=== PATIENT | male | born 1970 | race African-American/Black ===

== ENCOUNTER 2016-09-19 23:57 | Inpatient (IN) | payer OTHER ==
[~2016-09-19] VITALS: Ht 170.2 cm; Wt 85.7 kg
[~2016-09-19 23:57] MED LIST: ASPI81CT89 PO; ATOR20TA40 PO; CARV3.122 PO; FURO-572 PO; LOSA25TA14 PO; SACC250C4 PO; SPIR25TA PO
[2016-09-20 00:07] VITALS: BP 118/83
--- NOTE | 2016-09-20 02:19 | NUR ---
Patient to bed 08.
--- NOTE | 2016-09-20 02:20 | NUR ---
46/M BIBA W/C/O N/V SINCE YESTERDAY. PATIENT STATES HE WAS DRINKING THE DAY BEFORE YESTERDAY AND HASN'T DRANK. VSS. ER AWARE
--- NOTE | 2016-09-20 02:29 | NUR ---
Dr. Greenfield evaluating patient at bedside.
[2016-09-20] MEDS ORDERED: ACETAMIN/CODEINE 120/12MG-5ML 5 ML UDC PO ONE (02:40)
--- NOTE | 2016-09-20 02:52 | NUR ---
XRAY at bedside.
[2016-09-20 03:40] LABS: BASOPHILS # (AUTO) 0.1 K/uL (0.00-0.22); BASOPHILS % (AUTO) 1.5 % (0.0-2.0); EOSINOPHILS # (AUTO) 0.2 K/uL (0-0.4); EOSINOPHILS % (AUTO) 5.7 % (0.0-4.0); HEMATOCRIT 39.8 % (36-52); HEMOGLOBIN 12.4 g/dL (12.0-18.0); LYMPHOCYTES # (AUTO) 1.2 K/uL (2.0-11.5); MEAN CORPUSCULAR HEMOGLOBIN 26 pg (27-31); MEAN CORPUSCULAR HGB CONC 31 g/dL (33-37); MEAN CORPUSCULAR VOLUME 82 fL (80-94); MONOCYTES # (AUTO) 0.5 K/uL (0.8-1.0); MONOCYTES % (AUTO) 13.5 % (1.7-9.3); NEUTROPHILS % (AUTO) 49.3 % (42.2-75.2); PLATELET COUNT (AUTO) 302 K/uL (140-450); RED BLOOD CELL COUNT(AUTO) 4.83 MIL/uL (4.20-6.10); RED CELL DISTRIBUTION WIDTH 16.7 % (11.6-13.7)
[2016-09-20 03:56] LABS: ANION GAP 13.6 (8-16); CARBON DIOXIDE 24.8 mmol/L (21-32); CREATININE 0.9 mg/dL (0.6-1.3); POTASSIUM 3.4 mmol/L (3.5-5.1)
[2016-09-20 03:58] LABS: INR 1.3 (0.8-1.2)
[2016-09-20 04:00] LABS: ALBUMIN 2.7 g/dL (3.4-5.0); TOTAL BILIRUBIN 0.6 mg/dL (0.0-1.0); TOTAL PROTEIN, SERUM 7.2 g/dL (6.4-8.2)
[2016-09-20] MEDS ORDERED: FUROSEMIDE 40 MG/4 ML VIAL IVP ONE (04:10)
[2016-09-20 04:22] LABS: LACTIC ACID 1.8 mmol/L (0.4-2.0)
--- NOTE | 2016-09-20 04:31 | NUR ---
PT RESTING, ON DATABASE DEVELOPMENT PROJECT MANAGER AWATING FOR ROOM ASSIGMENT. NO S/S OF DISTRESS NOTED WILL CONT TO MONITOR.
[2016-09-20] MEDS ORDERED: HYDROcodone/APAP 5/325 MG 1 TAB TAB PO PRN (05:05)
[2016-09-20] MEDS ORDERED: ACETAMINOPHEN 325 MG TAB PO PRN (05:05)
[2016-09-20] MEDS ORDERED: ONDANSETRON 4 MG/2 ML VIAL IVP PRN (05:05)
--- NOTE | 2016-09-20 05:20 | NUR ---
Patient will be admitted to care of DR ORELLANA. Admited to TELEMETRY. Will go to room 106 B. Belongings list completed. Report to TOMMY HENRIQUEZ.
--- NOTE | 2016-09-20 05:35 | NUR ---
PT TRAFERRED TO TELEMETRY FLOOR, ROOM 106 B. NO S/S OF DISTRESS NOTED DURING TRASPORT. VSS. ACCOMPANIED BY JOSUE SANDERS, AND JANETH BEARD.
--- NOTE | 2016-09-20 05:35 | NUR ---
PT ADMIT DX CHF EXACERBATION,PT LOOKS WEAK AND DROWSY,ASSISTED TO BED SKIN CHECK DONE WITH RN TRACEY AND PATIENT BILATERAL LOWER EXTREMITIES HAVE EDEMA 2+ AT THIS TIME.PT WAS PLACED ON TELEMONITORING SO WE CAN CHECK HIS HEART.PT DENIES ANY PAIN OR DISCOMFORT OR ANY SOB AT THIS TIME,VITALS TAKEN AND PATIENT REMAINS AFEBRILE AND O2SAT IS 98% ON ROOM AIR.PT HAS BEEN PLACE ON FALL PRECAUTIONS AND EDUCATED ON HOW TO USE THE CALL LIGHT PT VERBALIZES UNDERSTANDING.PT IS CURRENTLY VOIDING PALE COLOR URINE IN THE URINAL.PLAN OF CARE DISCUSSED WITH THE PATIENT WILL CONTINUE TO MONITOR.BED ALARM ON.
[2016-09-20 05:37] LABS: FREE T4 (FREE THYROXINE) 1.64 ng/dL (0.76-1.46); THYROID STIMULATING HORMONE 2.13 uIU/mL (0.34-3.76)
[2016-09-20 05:51] VITALS: BP 109/58
--- NOTE | 2016-09-20 06:10 | NUR ---
Patient's Plan of Care was discussed and reviewed with POTATO SEED CUTTER: MARTINEZ Liu
[2016-09-20 06:33] LABS: AMPHETAMINE, URINE NEG. ng/ml (NEG <=1000); BARBITURATE, URINE NEG. ng/ml (NEG <=200); BENZODIAZEPINE, URINE NEG. ng/mL (NEG <=200); CANNABINOID, URINE NEG. ng/mL (NEG <=50); COCAINE, URINE NEG. ng/mL (NEG <=300); OPIATE, URINE NEG. ng/mL (NEG <=2000); PHENCYCLIDINE SCREEN,URINE NEG. ng/mL (NEG <=25)
--- NOTE | 2016-09-20 06:35 | NUR ---
MRSA OF THE NARES WAS COLLECTED ALREADY AND SENT TO THE LAB. URINE FOR UDS HAS ALSO BEEN COLLECTED AND SENT TO THE LAB.PT CONTINUES TO SLEEP ON AND OFF CONTINUES TO BE DROWSY BUT WAKES UP TO USE THE URINAL.CALL LIGHT WITHIN REACH.
--- NOTE | 2016-09-20 06:36 | NUR ---
PATIENT IS COUGHING INTERMITTENTLY AND CONTINUES TO COUGH BUT NO SECRETIONS OR PHLEGM EXPECTORATED AT THIS TIME.PATIENT DENIES ANY SOB.
--- NOTE | 2016-09-20 06:38 | NUR ---
PATIENT NOT PLACED ON SCD'S BECAUSE OF THE SWELLING TO HIS LOWER EXTREMITIES.
--- NOTE | 2016-09-20 06:58 | NUR ---
PATIENT HAS BEEN SCREENED AND CATEGORIZED HIGH NUTRITION RISK. PATIENT WILL BE SEEN WITHIN 1-2 DAYS OF ADMISSION. 09/21/16-09/22/16 RINA [place] MS, RDN
--- NOTE | 2016-09-20 07:33 | NUR ---
PT STABLE REPORT ENDORSED TO TOMMY WOLFE SHE WILL RESUME CARE OF THE PATIENT.
--- NOTE | 2016-09-20 07:35 | NUR ---
RECEIVED REPORT FROM NIGHT RN. PT RESTING IN BED. AAOX4. NO S/S OF ACUTE DISTRESS. PT HAS NON-PRODUCTIVE COUGH. IV SITE PATENT AND INTACT. 4+ PITTING EDEMA NOTED TO BLE. PT DENIES PAIN. CALL LIGHT WITHIN REACH. SAFETY MEASURES ENSURED. WILL CONTINUE TO MONITOR.
[2016-09-20 07:52] VITALS: BP 115/86
[2016-09-20] MEDS: LOSARTAN 25 MG TAB PO SCH (09:00)
[2016-09-20] MEDS: FUROSEMIDE 40 MG/4 ML VIAL IVP SCH ×2 (09:56→21:56)
--- NOTE | 2016-09-20 09:56 | NUR ---
PT RESTING IN BED. NO S/S OF ACUTE DISTRESS. PT DENIES PAIN. IV SITE PATENT AND INTACT. CALL LIGHT WITHIN REACH. SAFETY MEASURES ENSURED. WILL CONTINUE TO MONITOR.
[2016-09-20] MEDS: ATORVASTATIN 20 MG TAB PO SCH (09:57)
[2016-09-20] MEDS: DOCUSATE SODIUM 100 MG GELCAP PO SCH (09:57)
[2016-09-20] MEDS: CARVEDILOL 3.125 MG TAB PO SCH ×2 (09:58→23:43)
[2016-09-20] MEDS: ASPIRIN 81 MG TAB.CHEW PO SCH (09:59)
[2016-09-20] MEDS: SPIRONOLACTONE 25 MG TAB PO SCH (10:00)
[2016-09-20] MEDS ORDERED: POTASSIUM CHLORIDE 10 MEQ TABER PO SCH (11:00)
[2016-09-20 12:00] VITALS: BP 108/93
--- NOTE | 2016-09-20 12:24 | NUR ---
PT SLEEPING IN BED. NO S/S OF ACUTE DISTRESS. CALL LIGHT WITHIN REACH. SAFETY MEASURES ENSURED. WILL CONTINUE TO MONITOR.
[2016-09-20] MEDS ORDERED: AZITHROMYCIN 250 MG TAB PO SCH (13:00)
--- NOTE | 2016-09-20 13:07 | NUR ---
ECHO DONE AND PT NURSE NOTIFIED ABOUT LOW EF
[2016-09-20 16:00] VITALS: BP 97/66
--- NOTE | 2016-09-20 16:05 | NUR ---
PHYSICIAN AND QUANTITATIVE MANAGER AT BEDSIDE TO DO THORACENTISIS. PT STATES HE "DIDN'T AUTHORIZE WOMEN TO BE IN HIS ROOM." PT REFUSES THORA. PHYSICIAN EXPLAINED IMPORTANCE OF PROCEDURE AND OFFERED TO HAVE THOSE THAT COULD STEP OUT OF THE ROOM. PT VERBALIZES UNDERSTANDING BUT REFUSES. DR. WILLS MADE AWARE.
[2016-09-20] MEDS: ALBUTEROL SULFATE/IPRATROPIU 3 ML SOL IH SCH (18:56)
--- NOTE | 2016-09-20 19:04 | NUR ---
STARTED HHN TREATMENT, PUT MEDICATION IN NEBULIZER AND AFTER 1 MINUTE PATIENT TOOK MASK/NEBULIZER OFF AND STATED HE DOES NOT WANT HHN
--- NOTE | 2016-09-20 19:14 | NUR ---
ENDORSED PLAN OF CARE TO NIGHT RN. PT REMAINS IN STABLE CONDITION.
--- NOTE | 2016-09-20 19:20 | NUR ---
RECEIVED REPORT FROM DAY NURSEAIDEN. PATIENT RESTING IN BED, WATCHING TELEVISION. NO RESPIRATORY DISTRESS, SOB, OR DISCOMFORT. INITIAL ASSESSMENT AND BODY CHECK DONE. PATIENT IS AOX4, SKIN IS INTACT, IV ACCESS TO RIGHT FOREARM 22G, PATENT. PATIENT HAS SWELLING TO BLE, REFUSES TO PALPATION TO AREA. DISCUSSED PLAN OF CARE, MEDICATION REGIMENT, AND PAIN MANAGEMENT WITH PATIENT. PATIENT VERBALIZED UNDERSTANDING. PLACED PATIENT ON SAFETY/FALL PRECAUTIONS. CALL LIGHT LEFT WITHIN REACH, WILL CONTINUE TO MONITOR.
[2016-09-20 20:00] VITALS: BP 96/60
--- NOTE | 2016-09-20 20:00 | NUR ---
DR. GONZALES IN TO SEE PATIENT.
--- NOTE | 2016-09-20 22:20 | NUR ---
PATIENT IN BED, RESTING, WATCHING TELEVISION. NO RESPIRATORY DISTRESS, SOB, OR DISCOMFORT. CALL LIGHT LEFT WITHIN REACH, WILL CONTINUE TO MONITOR.
[2016-09-21] VITALS (7 sets, daily range): BP systolic 91–125; BP diastolic 56–78
--- NOTE | 2016-09-21 01:10 | NUR ---
PATIENT IN BED, SLEEPING. NO RESPIRATORY DISTRESS, SOB, OR DISCOMFORT. CALL LIGHT LEFT WITHIN REACH, WILL CONTINUE TO MONITOR.
--- NOTE | 2016-09-21 03:03 | NUR ---
PATIENT ASLEEP. NO RESPIRATORY DISTRESS, SOB, OR DISCOMFORT. CALL LIGHT LEFT WITHIN REACH, WILL CONTINUE TO MONITOR.
[2016-09-21] MEDS: ALBUTEROL SULFATE/IPRATROPIU 3 ML SOL IH SCH ×3 (06:00→19:56)
--- NOTE | 2016-09-21 06:02 | NUR ---
PATIENT SITTING UP IN BED, WATCHING TELEVISION. NO RESPIRATORY DISTRESS, SOB, OR DISCOMFORT. CALL LIGHT LEFT WITHIN REACH, WILL CONTINUE TO MONITOR.
--- NOTE | 2016-09-21 07:05 | NUR ---
ASSUMED CONTINUITY OF CARE. NO SIGNS AND SYMPTOMS OF ACUTE DISTRESS NOTICED. INITIAL ASSESSMENT DONE. NON-COMPLIANT. REFUSED COMPLETE ASSESSMENT OF BLE. EXPLAINED DIAGNOSIS, PLAN OF CARE, PAIN MANAGEMENT TEACHING, USE OF CALL LIGHT/BED/TV/BATHROOM. VERBALIZED UNDERSTANDING. CALL LIGHT WITHIN REACH.
--- NOTE | 2016-09-21 07:05 | NUR ---
REPORT GIVEN TO DAY NURSEDONNA. PATIENT RESTING IN BED, STABLE. NO RESPIRATORY DISTRESS, SOB, OR DISCOMFORT. ALL NEEDS ATTENDED TO DURING SHIFT, CALL LIGHT LEFT WITHIN REACH.
[2016-09-21 07:09] LABS: APPEARANCE,URINE CLEAR (CLEAR); BILIRUBIN,URINE NEGATIVE (NEGATIVE); BLOOD, URINE NEGATIVE (NEGATIVE); COLOR,URINE YELLOW (YELLOW); LEUKOCYTE ESTERASE ,URINE NEGATIVE (NEGATIVE); NITRITE, URINE NEGATIVE (NEGATIVE); PROTEIN,URINE NEGATIVE (NEGATIVE); UGLUCOSE NEGATIVE (NEGATIVE); UROBILINOGEN,URINE 0.2 EU/dL (0.2 - 1)
--- NOTE | 2016-09-21 07:10 | NUR ---
TOMMY THOMPSON NOTIFIED THAT PT REFUSED BREATHING TX
--- NOTE | 2016-09-21 08:00 | NUR ---
Patient's Plan of Care was discussed and reviewed with SUSTAINABLE AGRICULTURE SPECIALIST: FENG.
[2016-09-21] MEDS: LOSARTAN 25 MG TAB PO SCH (08:35)
[2016-09-21] MEDS: LACTOBACILLUS RHAMNOSUS GG 1 EACH CAP PO SCH (08:35)
[2016-09-21] MEDS: CARVEDILOL 3.125 MG TAB PO SCH ×3 (08:36→21:00)
[2016-09-21] MEDS: DOCUSATE SODIUM 100 MG GELCAP PO SCH (08:36)
[2016-09-21] MEDS: SPIRONOLACTONE 25 MG TAB PO SCH (08:36)
[2016-09-21] MEDS: ATORVASTATIN 20 MG TAB PO SCH (08:36)
[2016-09-21] MEDS: ASPIRIN 81 MG TAB.CHEW PO SCH (08:37)
[2016-09-21] MEDS: AZITHROMYCIN 250 MG TAB PO SCH (08:37)
[2016-09-21] MEDS: FUROSEMIDE 40 MG/4 ML VIAL IVP SCH (08:42)
[2016-09-21 08:51] LABS: BASOPHILS # (AUTO) 0.1 K/uL (0.00-0.22); BASOPHILS % (AUTO) 3.1 % (0.0-2.0); EOSINOPHILS # (AUTO) 0.3 K/uL (0-0.4); EOSINOPHILS % (AUTO) 7.4 % (0.0-4.0); HEMATOCRIT 37.1 % (36-52); HEMOGLOBIN 11.7 g/dL (12.0-18.0); LYMPHOCYTES # (AUTO) 0.9 K/uL (2.0-11.5); LYMPHOCYTES % (AUTO) 26.2 % (20.5-51.1); MEAN CORPUSCULAR HEMOGLOBIN 26 pg (27-31); MEAN CORPUSCULAR HGB CONC 32 g/dL (33-37); MEAN CORPUSCULAR VOLUME 82 fL (80-94); MONOCYTES # (AUTO) 0.4 K/uL (0.8-1.0); MONOCYTES % (AUTO) 11.4 % (1.7-9.3); NEUTROPHILS # (AUTO) 1.8 K/uL (1.8-7.7); NEUTROPHILS % (AUTO) 51.9 % (42.2-75.2); PLATELET COUNT (AUTO) 328 K/uL (140-450); RED BLOOD CELL COUNT(AUTO) 4.53 MIL/uL (4.20-6.10); RED CELL DISTRIBUTION WIDTH 16.2 % (11.6-13.7); WHITE BLOOD COUNT (AUTO) 3.5 K/uL (4.8-10.8)
[2016-09-21 09:03] LABS: ANION GAP 7.6 (8-16); CARBON DIOXIDE 30.6 mmol/L (21-32); POTASSIUM 3.2 mmol/L (3.5-5.1)
[2016-09-21 09:06] LABS: MAGNESIUM 1.8 mg/dL (1.8-2.4); PHOSPHORUS 3.7 mg/dL (2.5-4.9)
[2016-09-21] MEDS: QUEtiapine FUMARATE 25 MG TAB PO SCH ×2 (09:30→20:52)
--- NOTE | 2016-09-21 10:40 | NUR ---
INFORMED ISAMAR MARI OF PT. K LEVEL 3.2. ALSO INFORMED CHARGE NURSE DARRYL WATT.
--- NOTE | 2016-09-21 12:38 | NUR ---
PT WAS SLEEPING WITH NO SIGNS OF DISTRESS NOTED AT THIS TIME NO BREATHING GIVEN
--- NOTE | 2016-09-21 13:25 | NUR ---
TEMP 99.2 TEMPORAL SCAN, BP 88/60, HR 94, RESP 18, O2 SAT 97% ON ROOM AIR. NO C/O PAIN. NO ACUTE DISTRESS NOTED. NON-COMPLIANT. REFUSED TRENDELENBERG POSITION. REFUSED TO ELEVATE BLE WITH PILLOWS. INFORMED ISAMAR MARI ABOUT LATEST VS. ISAMAR MARI SEEN PT., STILL NON-COMPLIANT. REFUSED BLE ASSESSMENT WITH ISAMAR MARI AND PT. STATED "NO, I TOLD YOU NOT TO TOUCH OR CHECK MY FEET." IN AN ANGRY VOICE. INFORMED CHARGE NURSE DARRYL WATT. CONTINUE MONITORING.
[2016-09-21] MEDS ORDERED: POTASSIUM CHLORIDE 10 MEQ TABER PO SCH (13:30)
--- NOTE | 2016-09-21 14:05 | NUR ---
TEMP 98.6 TEMPORAL SCAN, BP 91/56, HR 89, RESP 18, O2 SAT 97% ON ROOM AIR. NO C/O PAIN. NO ACUTE DISTRESS NOTED. DR. WILLS MADE AWARE OF VS. ALSO INFORMED DARRYL WATT. CONTINUE MONITORING.
--- NOTE | 2016-09-21 14:45 | NUR ---
DR. SYKES CAME, CHECKED PT. CHART, SEEN PT., AND INFORMED OF PT. BP AT 1325 WAS 88/60. NO ORDER RECEIVED.
--- NOTE | 2016-09-21 15:00 | NUR ---
SEEN WATCHING TV AT THIS TIME. NO DISCOMFORT NOTICED. CALL LIGHT WITHIN REACH.
--- NOTE | 2016-09-21 19:16 | NUR ---
BEDSIDE REPORT GIVEN TO EDVIN WATT. IN STABLE CONDITION.
--- NOTE | 2016-09-21 19:17 | NUR ---
RECEIVED REPORT FROM DAY FOOT DRILL OPERATOR FOR CONTINUITY OF CARE. PATIENT IS A&OX4, DISCUSSED PLAN OF CARE WITH PT, VERBALIZED UNDERSTANDING. SHIFT ASSESSMENT DONE, VS TAKEN, STABLE AT THIS TIME. NO S/S OF RESPIRATORY DISTRESS NOTED ON ROOM AIR, PT DOES HAVE INTERMITTENT COUGH NOTED. PATIENT DENIES PAIN. IV TO LT HAND 22 GAUGE PATENT AND FLUSHED. PER DAY FOOT DRILL OPERATOR PT HAS BLE EDEMA, WOULD NOT ALLOW ASSESSMENT. SAFETY/FALL PRECAUTIONS ENFORCED. CALL LIGHT PLACED WITHIN REACH. WILL CONTINUE TO MONITOR.
--- NOTE | 2016-09-21 20:29 | NUR ---
2000 PLACED HHNTX ON PT FACE TO GIVE HIS BREATHING MEDICINE AND PT TOOK IT OFF REFUSING TO WEAR IT. I EXPLAINED TO PT THAT HE WAS WHEEZING AND THAT HE NEEDED IT BUT HE REFUSED. I TOLD PT TO CALL IF HE NEEDED A HHNTX LATER
--- NOTE | 2016-09-21 20:30 | NUR ---
PER RT PATIENT REFUSED BREATHING TREATMENT.
--- NOTE | 2016-09-21 20:52 | NUR ---
DUE MEDICATION ADMINISTERED, TOLERATED WELL. HELD CARVEDILOL PER PARAMETERS, B/P 91/60 HR 100. WILL REASSESS. ALL NEEDS MET AT THIS TIME. CALL LIGHT WITHIN REACH.
--- NOTE | 2016-09-21 23:56 | NUR ---
VS TAKEN, TEMP 99.1, OFFERED PT TYLENOL AND ICE PACK AND PT REFUSED. ENCOURAGED PT TO REMOVE BLANKETS TO COOL DOWN. ALL OTHER VS STABLE AT THIS TIME. CALL LIGHT WITHIN REACH.
[2016-09-22] VITALS: BP 112/56
--- NOTE | 2016-09-22 02:02 | NUR ---
PT REFUSING TO HAVE BATTERIES CHANGED ON TELE MONITOR, ALSO REFUSED TO LET MATTHEW CHESTER CHANGE THEM. EDUCATED PT WE WILL NOT BE ABLE TO MONITOR HIM AND HE STILL REFUSED. PT ALSO REFUSED FOR ME TO REASSESS HIS TEMPERATURE.
[2016-09-22 04:00] VITALS: BP 121/79
--- NOTE | 2016-09-22 04:05 | NUR ---
PT ALLOWED VS TO BE TAKEN, TEMP IS NOW 97.2. PROVIDED PT SANDWICH PER REQUEST. CALL LIGHT IN REACH.
--- NOTE | 2016-09-22 05:57 | NUR ---
CHECKED IN ON PATIENT. AWAKE WATCHING TV. NO S/S OF DISTRESS OR DISCOMFORT NOTED.
[2016-09-22] MEDS: ALBUTEROL SULFATE/IPRATROPIU 3 ML SOL IH SCH ×3 (06:00→20:32)
--- NOTE | 2016-09-22 07:13 | NUR ---
ENDORSED PATIENT TO DAY RN FOR CONTINUITY OF CARE, PATIENT IS IN STABLE CONDITION.
--- NOTE | 2016-09-22 07:15 | NUR ---
RECEIVED PT IN BED, AWAKE, RESPONSIVE. POSITIVE WHEEZING ON AUSCULTATION NOTED. DENIES ANY PAIN OR DISCOMFORT. IV ON LEFT HAND , G22, INTACT. BILATERAL LEG EDEMA NOTED.PT REFUSED PO MEDS, LAB DRAWS, IMAGING TESTS, AND VITAL SIGN TAKING. RISKS AND BENEFITS EXPLAINED, MD AWARE.
--- NOTE | 2016-09-22 07:16 | NUR ---
ADDITIONAL: PT KEPT COMFORTABLE, CALL LIGHT WITHIN REACH, MAINTAINED SAFETY PRECAUTION
[2016-09-22] MEDS: SPIRONOLACTONE 25 MG TAB PO SCH (08:13)
[2016-09-22] MEDS: DOCUSATE SODIUM 100 MG GELCAP PO SCH (08:14)
[2016-09-22] MEDS: ASPIRIN 81 MG TAB.CHEW PO SCH (08:14)
[2016-09-22] MEDS: CARVEDILOL 3.125 MG TAB PO SCH ×2 (08:14→20:28)
[2016-09-22] MEDS: LOSARTAN 25 MG TAB PO SCH (08:14)
[2016-09-22] MEDS: QUEtiapine FUMARATE 25 MG TAB PO SCH ×2 (08:15→20:29)
[2016-09-22] MEDS: ATORVASTATIN 20 MG TAB PO SCH (08:15)
[2016-09-22] MEDS: LACTOBACILLUS RHAMNOSUS GG 1 EACH CAP PO SCH (08:15)
[2016-09-22] MEDS: AZITHROMYCIN 250 MG TAB PO SCH (08:15)
[2016-09-22] MEDS: FUROSEMIDE 40 MG/4 ML VIAL IVP SCH (08:16)
--- NOTE | 2016-09-22 11:07 | NUR ---
FAXED INITIAL REVIEW TO [facility] [phone] PHONE [phone] ROCHELLE [phone]
--- NOTE | 2016-09-22 12:58 | NUR ---
PT SLEEPING NO BREATHING TX GIVEN NO SIGNS OF DISTRESS NOTED
--- NOTE | 2016-09-22 14:05 | NUR ---
PT PULLED OUT PERIPHERAL IV AND REFUSED TO REINSERT. RISKS AND BENEFITS EXPLAINED. DR BOGGS AWARE.
--- NOTE | 2016-09-22 14:33 | NUR ---
09/22/16 RD INITIAL ASSESSMENT COMPLETED PLEASE REFER TO NUTRITION ASSESSMENT UNDER CARE ACTIVITY FOR ESTIMATED NUTRITIONAL NEEDS. RD RECOMMENDATIONS: 1. CONTINUE CARDIAC DIET TOLERATED 2. PT MEETING >90% OF NUTRITIONAL NEEDS. 3. RD WILL F/U 5-7 DAYS; LOW RISK. HOLLEY REY[address] RD
[2016-09-22] MEDS ORDERED: POTASSIUM CHLORIDE 10 MEQ TABER PO SCH (15:37)
--- NOTE | 2016-09-22 15:51 | NUR ---
PT REFUSED POASSIUM CL PO X1, RISKS AND BENEFITS EXPLAINED. DR. OATES AWARE.
--- NOTE | 2016-09-22 18:53 | NUR ---
PT IN BED, RESTING WELL. NO SIGNS OF ACUTE DISTRESS. ENDORSED TO ONCOMING SMOKING PIPE MOUNTER NURSE FOR CONTINUITY OF CARE.
--- NOTE | 2016-09-22 19:20 | NUR ---
RECEIVED PT AWAKE WATCHING TV, ABLE TO CONVINCED TO TAKE VITAL SIGNS, STABLE, NO SIGNS OF SOB OR PAIN, NO IV LINE, REFUSED TO START NEW IV LINE, DRS AWARE, SAFETY MEASURES IN PLACE, CALL LIGHT WITHIN REACH.
--- NOTE | 2016-09-22 19:50 | NUR ---
VOIDING FREELY PER URINAL, ORANGE JUICE AND CECILIO CRACKERS PROVIDED PER REQUEST, ALL NEEDS ATTENDED.
[2016-09-22 20:00] VITALS: BP 115/84
--- NOTE | 2016-09-22 20:30 | NUR ---
PT REFUSED DUE PO MEDICATIONS, RISK AND BENEFITS EXPLAINED BUT PT STILL REFUSED SAYING "I'M OK", NO SIGNS OF PAIN OR SOB, ALL NEEDS ATTENDED.
--- NOTE | 2016-09-22 23:30 | NUR ---
PT SEEN AWAKE, ON HIGH FOWLERS POSITION, REFUSED VITAL SIGNS TO BE TAKEN SAID "IM CORBY", RISK AND BENEFITS EXPLAINED BUT STILL REFUSE, NO SIGNS OF PAIN OR SOB, CALL LIGHT WITHIN REACH, CONTINUE TO MONITOR CLOSELY.
--- NOTE | 2016-09-23 03:28 | NUR ---
PT SEEN SLEEPING, EASILY AROUSABLE, REFUSED VITAL SIGNS TO BE TAKEN, RISK AND BENEFITS EXPLAINED, STILL REFUSED, NO SIGNS OF PAIN OR RESP DISTRESS, MONITORED CLOSELY.
--- NOTE | 2016-09-23 04:30 | NUR ---
PT SEEN SITTING ON BED WITH BLANKET OVER HIS HEAD, CHANGE TELE MONITOR BATTERY, NO SIGNS OF DISTRESS, MONITORED CLOSELY.
[2016-09-23] MEDS: ALBUTEROL SULFATE/IPRATROPIU 3 ML SOL IH SCH ×3 (06:00→20:52)
--- NOTE | 2016-09-23 06:00 | NUR ---
ROUNDED ON PT, AWAKE WATCHING TV, VERBALIZED "IM CORBY", NO SIGNS OF DISTRESS, MONITORED CLOSELY.
[2016-09-23 07:04] LABS: TRIIODOTHYRONINE FREE 3.2 pg/mL (2.0-4.4)
--- NOTE | 2016-09-23 07:20 | NUR ---
PT AWAKE ON BED, NO SIGNS OF DISTRESS, REPORT GIVEN TO RN SONAM FOR CONTINUITY OF CARE.
--- NOTE | 2016-09-23 07:21 | NUR ---
PT AWAKE, AND ALERT. NO SIGNS OF ACUTE DISTRESS. SKIN IS WARM AND DRY. NO EPISODES OF ANY BOWEL/BLADDER DISCOMFORT. NO C/O ANY PAIN. ALL NEEDS ATTENDED, SAFETY PRECAUTIONS MAINTAINED. REFUSED V/S TO BE TAKEN AT THIS TIME. RISKS AND BENEFITS EXPLAINED. CONTINUE TO MONITOR.
[2016-09-23] MEDS: CARVEDILOL 3.125 MG TAB PO SCH ×2 (09:00→20:09)
[2016-09-23] MEDS: AZITHROMYCIN 250 MG TAB PO SCH (09:00)
[2016-09-23] MEDS: LOSARTAN 25 MG TAB PO SCH (09:00)
[2016-09-23] MEDS: DOCUSATE SODIUM 100 MG GELCAP PO SCH (09:00)
[2016-09-23] MEDS: ATORVASTATIN 20 MG TAB PO SCH (09:00)
[2016-09-23] MEDS: LACTOBACILLUS RHAMNOSUS GG 1 EACH CAP PO SCH (09:00)
[2016-09-23] MEDS: QUEtiapine FUMARATE 25 MG TAB PO SCH ×2 (09:00→20:08)
[2016-09-23] MEDS: SPIRONOLACTONE 25 MG TAB PO SCH (09:00)
[2016-09-23] MEDS: FUROSEMIDE 40 MG/4 ML VIAL IVP SCH (09:00)
[2016-09-23] MEDS: ASPIRIN 81 MG TAB.CHEW PO SCH (09:00)
--- NOTE | 2016-09-23 11:48 | NUR ---
FAXED CONCURRENT REVIEW TO [facility] [phone] PHONE [phone]
--- NOTE | 2016-09-23 15:30 | NUR ---
PT GIVEN CONSENT FOR US GUIDED THORACENTESIS, PROCEDURE DONE AT BEDSIDE, TOLERATING WELL. NO SIGNS OF ACUTE DISTRESS. CONTINUE TO MONITOR.
--- NOTE | 2016-09-23 15:40 | NUR ---
THORACENTESIS DONE WITH RADIOLOGIST AND WAS ABLE TO OBTAIN 1600 CC OF DARK RONIT FLUID FROM LEFT LUNG. PUNCTURE SITE COVERED WITH DRY DRESSING. NO SIGNS OF ANY BLEEDING OR DISCHARGE. PT NO C/O OF PAIN, NO SIGNS OF ACUTE DISTRESS. CONTINUE TO MONITOR.
[2016-09-23 16:00] VITALS: BP 105/70
--- NOTE | 2016-09-23 18:44 | NUR ---
PT AWAKE, RESPONSIVE, NO SIGNS OF ACUTE DISTRESS. WILL ENDORSE TO ONCOMING PROJECT DEVELOPER NURSE FOR CONTINUITY OF CARE.
--- NOTE | 2016-09-23 19:20 | NUR ---
RECEIVED PT AWAKE ON HIGH FOWLERS POSITION WATCHING TV, VITAL SIGNS STABLE, DIMINISHED LUNG SOUNDS, NO SOB NOTED, SAT-96% ON ROOM AIR, BAND AID INTACT TO LEFT LATERAL CHEST, NO BLEEDING OR DRAINAGE NOTED, POC DISCUSSED, SAFETY MEASURES IN PLACE, CALL LIGHT WITHIN REACH. Addendum: 09/24/16 at 0503 by Cordell Foster RN BAND AID TO LEFT BACK DRY AND INTACT
[2016-09-23 20:00] VITALS: BP 122/79
--- NOTE | 2016-09-23 20:10 | NUR ---
DUE MEDICATIONS TAKEN, VOIDING FREELY PER URINAL, ALL NEEDS ATTENDED.
--- NOTE | 2016-09-23 22:30 | NUR ---
PT AWAKE WATCHING TV,NO SIGNS OF SOB, MONITORED CLOSELY.
--- NOTE | 2016-09-23 23:25 | NUR ---
PT SLEEPING, EASILY AROUSABLE, VITAL SIGNS STABLE, DENIES ANY PAIN, NO SOB NOTED, CECILIO CRACKERS AND APPLE JUICE PROVIDED PER PT REQUEST, CONTINUE TO MONITOR CLOSELY.
[2016-09-24] VITALS: BP 114/72
[2016-09-24 04:00] VITALS: BP 110/74
--- NOTE | 2016-09-24 05:17 | NUR ---
PT REFUSED AM LAB DRAW, EXPLAINED TO PT THAT DOCTORS NEED IT FOR THEM TO DECIDE IF HE CAN BE DISCHARGE, PT STILL REFUSED.
--- NOTE | 2016-09-24 07:10 | NUR ---
RECEIVED PATIENT REPORT AT BEDSIDE. NO S/S OF DISTRESS NOTED. NO IV LINE IN PLACE. PATIENT REFUSES TO HAVE AN IV LINE. PATIENT ON TELE MONITORING. BED LOWERED WITH CALL LIGHT WITHIN REACH. WILL CONTINUE TO MONITOR
--- NOTE | 2016-09-24 07:15 | NUR ---
PT AWAKE, NO SIGNS OF DISTRESS, REPORT GIVEN TO TOMMY HERNÁNDEZ FOR CONTINUITY OF CARE.
[2016-09-24 08:00] VITALS: BP 114/80
[2016-09-24] MEDS: ALBUTEROL SULFATE/IPRATROPIU 3 ML SOL IH SCH ×3 (08:01→19:20)
[2016-09-24] MEDS ORDERED: QUET25TA46 PO (08:52)
[2016-09-24] MEDS ORDERED: AMOX-999 PO (08:54)
[2016-09-24] MEDS: FUROSEMIDE 40 MG/4 ML VIAL IVP SCH (09:00)
[2016-09-24] MEDS: ATORVASTATIN 20 MG TAB PO SCH (09:31)
[2016-09-24] MEDS: QUEtiapine FUMARATE 25 MG TAB PO SCH ×2 (09:31→20:09)
[2016-09-24] MEDS: LACTOBACILLUS RHAMNOSUS GG 1 EACH CAP PO SCH (09:31)
[2016-09-24] MEDS: SPIRONOLACTONE 25 MG TAB PO SCH (09:31)
[2016-09-24] MEDS: AZITHROMYCIN 250 MG TAB PO SCH (09:31)
[2016-09-24] MEDS: DOCUSATE SODIUM 100 MG GELCAP PO SCH (09:31)
[2016-09-24] MEDS: ASPIRIN 81 MG TAB.CHEW PO SCH (09:31)
[2016-09-24] MEDS: LOSARTAN 25 MG TAB PO SCH (09:32)
[2016-09-24] MEDS: CARVEDILOL 3.125 MG TAB PO SCH ×2 (09:32→20:09)
--- NOTE | 2016-09-24 10:13 | NUR ---
SPOKE WITH PATIENT'S SISTER RAMY IRIZARRY AND INFORMED HER THAT PATIENT IS BEING DISCHARGED. RAMY STATES THAT SHE IS UNABLE TO ESTHETICIAN/OWNER THE PATIENT UNTIL SHE GETS OUT OFF WORK AT 4PM. SHE STATES THAT SHE WILL TRY TO CALL SOMEBODY ELSE WHO CAN ESTHETICIAN/OWNER THE PATIENT EARLIER
[2016-09-24 12:00] VITALS: BP 95/56
--- NOTE | 2016-09-24 12:51 | NUR ---
CM NOTE CONCURRENT REVIEW FAXED TO [facility] / FAX# [phone], C: #[phone]
--- NOTE | 2016-09-24 15:16 | NUR ---
PATIENT IN BED WATCHING TELEVISION. NO S/S OF DISTRESS NOTED
[2016-09-24 16:00] VITALS: BP 121/72
--- NOTE | 2016-09-24 17:45 | NUR ---
LEFT A VOICE MESSAGE TO PATIENT'S SISTER, REMINDING HER THAT THE PATIENT HAS BEEN DISCHARGED AND NEEDS TO BE PICKED UP
--- NOTE | 2016-09-24 19:10 | NUR ---
RECEIVED REPORT FROM TOMMY HERNÁNDEZ AT BEDSIDE. INITIAL ASSESSMENT COMPLETED. PT AAOX4. PT HAS BILATERAL LOWER EXTREMITY EDEMA. PT HAS NO IV ACCESS; PT REFUSED. ORIENTED PT TO ROOM AND SURROUNDINGS AND USE OF CALL LIHGT. PT AMBULATES. EXPLAINED PLAN OF CARE TO PT AND HE VERBALIZES UNDERSTANDING. SAFETY MEASURES IN PLACE CALL LIGHT WITHIN REACH.
--- NOTE | 2016-09-24 19:17 | NUR ---
PATIENT REPORT GIVEN AT BEDSIDE. PATIENT ENDORSED TO THE NIGHT NURSE IN STABLE CONDITION. PATIENT STATES THAT HIS SISTER IS COMING TO PICK HIM UP
--- NOTE | 2016-09-24 19:27 | NUR ---
PATIENT REFUSED HHN DUONEB TREATMENT
[2016-09-24 20:00] VITALS: BP 119/75
--- NOTE | 2016-09-24 20:12 | NUR ---
PT TOLERATED 2100 MEDS WELL. WILL CONTINUE TO MONITOR PT.
--- NOTE | 2016-09-24 20:15 | NUR ---
PT READY TO BE DISCHARGED. WAITING FOR PT'S SISTER TO COME EXTRUSION UTILITY WORKER PT. CALL LIGHT WITHIN REACH.
--- NOTE | 2016-09-24 20:45 | NUR ---
PT STATED THAT HE SPOKE TO SISTER ART AND SHE WILL BE COMING TO TEXTILE SCREEN MAKER PT ANY TIME NOW.
--- NOTE | 2016-09-24 21:30 | NUR ---
CALLED PT'S SISTER ART, SHE DID NOT ANSWER THE PHONE, LEFT A VOICEMAIL. AWAITING BAD WORK GATHERER BACK. CHARGE NURSE AWARE.
--- NOTE | 2016-09-24 22:00 | NUR ---
CALLED PT'S SISTER AGAIN; NO RESPONSE AWAITING MIXER AND BLENDER. WILL NOTIFY MATERIAL ASSISTANT.
[2016-09-25] VITALS: BP 110/67
--- NOTE | 2016-09-25 00:30 | NUR ---
CALLED PT'S SISTER AGAIN NO RESPONSE, PET STORE MERCHANDISER AWARE. PET STORE MERCHANDISERMEDICAID SPECIALIST TO CALL MD AND NOTIFY HIM.
--- NOTE | 2016-09-25 01:15 | NUR ---
CALLED DR. MERCADO WHO IS COVERING FOR DR. GOODE. DR. REYES AWARE THAT PT IS STILL HERE IN THE HOSPITAL. NO ORDERS GIVEN.
--- NOTE | 2016-09-25 02:48 | NUR ---
PT SLEEPING AT THIS TIME. NO SIGNS OF DISTRESS/DISCOMFORT NOTED.
[2016-09-25 04:00] VITALS: BP 112/68
--- NOTE | 2016-09-25 04:05 | NUR ---
PT USING URINAL. PT STABLE; PT DENIES DISCOMFORT. CALL LIGHT WITHIN REACH.
--- NOTE | 2016-09-25 04:50 | NUR ---
PT REFUSES TO HAVE LINEN CHANGED. TELETYPE OR VARITYPE KEYBOARD OPERATORNaeem COTA AT BEDSIDE. WILL CONTINUE TO MONITOR PT.
--- NOTE | 2016-09-25 07:10 | NUR ---
RECEIVED PATIENT REPORT AT BEDSIDE. PATIENT AWAKE ALERT AND ORIENTED. NO S/S OF DISTRESS NOTED. NO IV LINE IN PLACE. BED LOWERED WITH CALL LIGHT WITHIN REACH. WILL CONTINUE TO MONITOR
--- NOTE | 2016-09-25 07:15 | NUR ---
ENDORSED PLAN OF CARE TO TOMMY HERNÁNDEZ AND GUSTAVO FOR CONTINUITY OF CARE. ENDORSED TO NOTIFY SERVER DEVELOPER ABOUT PT NOT BEEN DISCHARGED; PT'S SISTER DID NOT SHOWED UP TO MORTGAGE LOAN COUNSELOR PT. PT IN STABLE CONDITION.
[2016-09-25 07:44] VITALS: BP 119/81
--- NOTE | 2016-09-25 08:16 | NUR ---
PT REFUSED BREATHING TX AND ASSESSMENT. TOMMY HERNÁNDEZ AT BEDSIDE.
--- NOTE | 2016-09-25 08:26 | NUR ---
PATIENT LEFT THE UNIT. PATIENT OFFERED A BUS PASS BUT REFUSED. PATIENT REFUSED TO TAKE DISCHARGE PRESCRIPTION. PATIENT WAS TOLD ABOUT HIS FOLLOW UP APPOINTMENT BUT REFUSED TO TAKE HIS DISCHARGE PAPERS WITH HIM. TELE LEADS TAKEN OFF.
[2016-09-25] MEDS: DOCUSATE SODIUM 100 MG GELCAP PO SCH (09:00)
[2016-09-25] MEDS: LACTOBACILLUS RHAMNOSUS GG 1 EACH CAP PO SCH (09:00)
[2016-09-25] MEDS: SPIRONOLACTONE 25 MG TAB PO SCH (09:00)
[2016-09-25] MEDS: AZITHROMYCIN 250 MG TAB PO SCH (09:00)
[2016-09-25] MEDS: FUROSEMIDE 40 MG/4 ML VIAL IVP SCH (09:00)
[2016-09-25] MEDS: CARVEDILOL 3.125 MG TAB PO SCH (09:00)
[2016-09-25] MEDS: QUEtiapine FUMARATE 25 MG TAB PO SCH (09:00)
[2016-09-25] MEDS: LOSARTAN 25 MG TAB PO SCH (09:00)
[2016-09-25] MEDS: ASPIRIN 81 MG TAB.CHEW PO SCH (09:00)
[2016-09-25] MEDS: ATORVASTATIN 20 MG TAB PO SCH (09:00)
--- NOTE | 2016-09-25 09:07 | NUR ---
CM NOTE CONCURRENT REVIEW SENT TO [facility] FAX# [phone] PH# [phone] ROCHELLE VICTOR EXT [phone]
== END 2016-09-25 08:30 | disposition home or self-care (01) | DRG 720 ==
LOC: MED 23:57 → MTU 09-20 04:56
PROVIDERS: ADMIT Student in an Organized Health Care Education/Training Program; ATTEND Student in an Organized Health Care Education/Training Program
PROC: 0W9B3ZZ Drainage of Left Pleural Cavity, Percutaneous Approach (ICD-10-PCS; principal; 2016-09-22)
DX: A41.9 Sepsis, unspecified organism (principal); I50.43 Acute on chronic combined systolic (congestive) and diastolic (congestive) heart failure; E43 Unspecified severe protein-calorie malnutrition; J91.8 Pleural effusion in other conditions classified elsewhere; J18.9 Pneumonia, unspecified organism; I11.0 Hypertensive heart disease with heart failure; I42.9 Cardiomyopathy, unspecified; F20.1 Disorganized schizophrenia; E83.51 Hypocalcemia; E87.6 Hypokalemia; E05.90 Thyrotoxicosis, unspecified without thyrotoxic crisis or storm; E78.5 Hyperlipidemia, unspecified; Z59.0 Homelessness; Z91.14 Patient's other noncompliance with medication regimen; Z91.19 Patient's noncompliance with other medical treatment and regimen; Z79.82 Long term (current) use of aspirin; Z79.899 Other long term (current) drug therapy; Z90.49 Acquired absence of other specified parts of digestive tract; Z56.0 Unemployment, unspecified; Z87.891 Personal history of nicotine dependence; Z68.29 Body mass index [BMI] 29.0-29.9, adult
CPT/HCPCS: 36415; 71010; 76604; 76942; 80048; 80053; 80305; 81003; 82948; 83036; 83605; 83690; 83735; 83880; 84100; 84439; 84443; 84480; 84481; 84484; 85025; 85610; 85730; 87040; 87081; 87086; 93005; 94640; 96374; 99285; J0696; J1940; J2001; J7030; J7060; J7620; Q0092

== ENCOUNTER 2017-01-11 07:53 | Inpatient (IN) | payer OTHER ==
[~2017-01-11] VITALS: Ht 188 cm; Wt 72.1 kg
[~2017-01-11 07:53] MED LIST changes: +AMOX-999 PO; +QUET25TA46 PO
--- NOTE | 2017-01-11 07:54 | NUR ---
Patient SHAHRAM SANTAMARIA, triaged by RN and evaluated by Dr. Carpenter while on ambulance [facility]. Waiting for an available bed.
[2017-01-11] MEDS ORDERED: NACL 0.9% 1,000 ML IV SCH (07:59)
[2017-01-11 08:00] VITALS: BP 131/98
[2017-01-11] MEDS ORDERED: ONDANSETRON 4 MG/2 ML VIAL IVP ONE (08:00)
[2017-01-11] MEDS ORDERED: FAMOTIDINE 20 MG/2 ML VIAL IVP ONE (08:00)
[2017-01-11 08:19] LABS: BASOPHILS # (AUTO) 0.1 K/uL (0.00-0.22); BASOPHILS % (AUTO) 2.9 % (0.0-2.0); EOSINOPHILS # (AUTO) 0.1 K/uL (0-0.4); EOSINOPHILS % (AUTO) 3.5 % (0.0-4.0); HEMOGLOBIN 12.7 g/dL (12.0-18.0); LYMPHOCYTES # (AUTO) 0.8 K/uL (2.0-11.5); LYMPHOCYTES % (AUTO) 20.1 % (20.5-51.1); MEAN CORPUSCULAR HEMOGLOBIN 26 pg (27-31); MEAN CORPUSCULAR HGB CONC 31 g/dL (33-37); MEAN CORPUSCULAR VOLUME 83 fL (80-94); MONOCYTES # (AUTO) 0.3 K/uL (0.8-1.0); MONOCYTES % (AUTO) 6.9 % (1.7-9.3); NEUTROPHILS # (AUTO) 2.6 K/uL (1.8-7.7); NEUTROPHILS % (AUTO) 66.6 % (42.2-75.2); PLATELET COUNT (AUTO) 342 K/uL (140-450); RED BLOOD CELL COUNT(AUTO) 4.93 MIL/uL (4.20-6.10); RED CELL DISTRIBUTION WIDTH 18.4 % (11.6-13.7); WHITE BLOOD COUNT (AUTO) 3.9 K/uL (4.8-10.8)
[2017-01-11 08:48] LABS: ANION GAP 13.6 (8-16); CARBON DIOXIDE 28.2 mmol/L (21-32); POTASSIUM 3.8 mmol/L (3.5-5.1)
[2017-01-11 08:49] LABS: CALCIUM 8.4 mg/dL (8.5-10.1)
--- NOTE | 2017-01-11 08:50 | NUR ---
Patient transferred to bed 4 for further care. RN evaluating patient at bedside.
[2017-01-11 08:51] LABS: AMYLASE 47 U/L (25-115); LIPASE 89 U/L (73-393)
[2017-01-11 08:54] LABS: TOTAL BILIRUBIN 1.2 mg/dL (0.0-1.0)
[2017-01-11 08:55] LABS: ALBUMIN 2.7 g/dL (3.4-5.0); INR 1.2 (0.8-1.2); PARTIAL THROMBOPLASTIN TIME 28.8 secs (22-35.6); PROTHROMBIN TIME 12.3 secs (10.8-13.4)
--- NOTE | 2017-01-11 09:00 | NUR ---
BROUGHT IN BY EMS C/O EPIGASTRIC BURNING TYPE PAIN DESHEVELED APPEARING, BLE PITTING EDEMA SKIN FLAKY HX---HTN, SCHIZOPHRENIA RX----? DENIES N/V/D; SKIN IS PINK/WARM/DRY; AAOX4 WITH EVEN AND STEADY GAIT; LUNGS CLEAR BL; HR EVEN AND REGULAR; PT DENIES ANY FEVER, CP, SOB, OR COUGH AT THIS TIME; PATIENT STATES PAIN OF 7/10 AT THIS TIME; VSS; PATIENT POSITIONED FOR COMFORT; HOB ELEVATED; BEDRAILS UP X2; BED DOWN. ER MD MADE AWARE OF PT STATUS.
--- NOTE | 2017-01-11 11:19 | NUR ---
Note emily in EDM - 01/11/17 at 1141 by AMELIA Patient discharged with v/s stable. Written and verbal after care instructions given and explained. Patient alert, oriented and verbalized understanding of instructions. Ambulatory with steady gait. All questions addressed prior to discharge. ID band removed. Patient advised to follow up with PMD. Rx of MOTRIN given. Patient educated on indication of medication including possible reaction and side effects. Opportunity to ask questions provided and answered.
[2017-01-11 11:21] LABS: APPEARANCE,URINE SLIGHTLY HAZY (CLEAR); BILIRUBIN,URINE 1+ (NEGATIVE); BLOOD, URINE NEGATIVE (NEGATIVE); COLOR,URINE YELLOW (YELLOW); LEUKOCYTE ESTERASE ,URINE NEGATIVE (NEGATIVE); NITRITE, URINE NEGATIVE (NEGATIVE); PH,URINE 5.5 (5.0-9.0); PROTEIN,URINE 2+ (NEGATIVE); UGLUCOSE NEGATIVE (NEGATIVE)
[2017-01-11] MEDS ORDERED: FUROSEMIDE 40 MG TAB PO ONE (11:25)
[2017-01-11] MEDS ORDERED: ATORVASTATIN 20 MG TAB PO SCH (11:35)
[2017-01-11] MEDS ORDERED: NITROGLYCERIN 0.4 MG TAB SL PRN (11:35)
[2017-01-11] MEDS ORDERED: ONDANSETRON 4 MG/2 ML VIAL IM/IVP PRN (11:35)
[2017-01-11] MEDS ORDERED: FUROSEMIDE 40 MG/4 ML VIAL IVP SCH (11:35)
[2017-01-11] MEDS ORDERED: ASPIRIN 325 MG TAB PO ONE (11:35)
[2017-01-11] MEDS ORDERED: LISINOPRIL 5 MG TAB PO SCH (11:35)
[2017-01-11] MEDS ORDERED: METOPROLOL 25 MG TAB PO SCH (11:35)
[2017-01-11] MEDS ORDERED: ACETAMINOPHEN 325 MG TAB PO PRN (11:35)
[2017-01-11] MEDS ORDERED: HYDROcodone/APAP 5/325 MG 1 TAB TAB PO ONE (11:35)
--- NOTE | 2017-01-11 11:52 | NUR ---
RN UNAVAILABLE FOR REPORT AT THIS TIME
[2017-01-11 11:57] LABS: BACTERIA,URINE None Seen /HPF (None Seen); RBC,URINE 0-5 (RARE) /HPF (0-5); WBC,URINE 0-5 (RARE) /HPF (0-5)
[2017-01-11 11:58] LABS: CALCIUM OXALATE CRYSTALS,UR 0-10 /HPF (None Seen); MUCUS,URINE 1+ /LPF (None Seen); SQUAMOUS EPITHELIAL CELL,UR 0-3 (FEW) /LPF (0-3 (FEW))
--- NOTE | 2017-01-11 12:00 | NUR ---
Patient will be admitted to care of DR ORELLANA. Admited to TELE. Will go to room 120B. Belongings list completed. Report to TOMMY LAZARO.
[2017-01-11 12:15] LABS: MAGNESIUM 2.1 mg/dL (1.8-2.4); PHOSPHORUS 3.7 mg/dL (2.5-4.9)
[2017-01-11 12:16] LABS: FREE T4 (FREE THYROXINE) 1.48 ng/dL (0.76-1.46); THYROID STIMULATING HORMONE 4.82 uIU/mL (0.34-3.74)
--- NOTE | 2017-01-11 12:20 | NUR ---
PT ARRIVED ON UNIT WITH 2 ER NURSES. PT IS AMB BUT GAIT UNSTEADY, NON-SKID SOCKS PUT ON, FALL PRECAUTION INITIATED. PT HAS IV ON L HAND 24 G SL FOR NOW. PT HAS NO COMPLAINTS AT THIS TIME. ORIENTED PT TO ROOM AND TO USE CALL LIGHT. CALL LIGHT WITHIN REACH. WILL CONTINUE TO MONITOR.
[2017-01-11 12:38] LABS: AMPHETAMINE, URINE NEG. ng/ml (NEG <=1000); BARBITURATE, URINE NEG. ng/ml (NEG <=200); BENZODIAZEPINE, URINE NEG. ng/mL (NEG <=200); CANNABINOID, URINE NEG. ng/mL (NEG <=50); COCAINE, URINE NEG. ng/mL (NEG <=300); OPIATE, URINE NEG. ng/mL (NEG <=2000); PHENCYCLIDINE SCREEN,URINE NEG. ng/mL (NEG <=25)
[2017-01-11 13:00] VITALS: BP 118/82
[2017-01-11 13:07] LABS: CHOL/HDL RATIO 3.2 (1-4.5)
[2017-01-11] MEDS: NACL 0.9% 1,000 ML IV SCH (13:35)
[2017-01-11] MEDS ORDERED: ALBUTEROL SULFATE/IPRATROPIU 3 ML SOL IH PRN (14:00)
[2017-01-11] MEDS ORDERED: ALBUTEROL SULFATE/IPRATROPIU 3 ML SOL IH SCH (14:03)
--- NOTE | 2017-01-11 14:20 | NUR ---
PT REFUSES N\C SPO2 100 POST HHN O2 ON AT BEDSIDE
--- NOTE | 2017-01-11 15:15 | NUR ---
SPOKE TO DR. SMITH REGARDING PT'S BILATERAL LOWER EXTREMITY PITTING EDEMA, STATED IT'S OKAY TO PUT SCDS ON. SPOKE TO DR. SMITH REGARDING PT'S DX OF CHF EXACERBATION, STATED IVF OF 60ML/HR IS OKAY.
--- NOTE | 2017-01-11 15:54 | NUR ---
PT'S BREATHING LABORED, RR 24-26/MIN. REFUSED NC O2. OXYGEN SAT 92-98% RA.
[2017-01-11 16:00] VITALS: BP 105/86
[2017-01-11] MEDS: CARVEDILOL 3.125 MG TAB PO SCH (16:14)
--- NOTE | 2017-01-11 17:30 | NUR ---
U/S TECH AT BEDSIDE PERFORMING CHEST AND ABD U/S.
--- NOTE | 2017-01-11 17:42 | NUR ---
PT IS SLEEPING IN BED. NO DISTRESS NOTED. CALL LIGHT WITHIN REACH. WILL CONTINUE TO MONITOR.
[2017-01-11] MEDS: MORPHINE SULFATE 2 MG/ML SYR IVP PRN (18:50)
[2017-01-11] MEDS: ALBUTEROL SULFATE/IPRATROPIU 3 ML SOL IH SCH (19:02)
--- NOTE | 2017-01-11 19:22 | NUR ---
ENDORSED CARE OF PT TO PACKAGING ASSEMBLER NURSE AT BEDSIDE. PT IN STABLE CONDITION.
--- NOTE | 2017-01-11 19:30 | NUR ---
RECEIVED REPORT FROM DAY RN AT BEDSIDE, PATIENT IS AAO X4 ON ROOM AIR, NO SOB OR SIGN OF DISTRESS AT THIS TIME, IV TO LEFT HAND PATENT AND INTACT, SKIN INTACT, DENIES PAIN AT THIS TIME. DISCUSSED PLAN OF CARE WITH PATIENT, PT VERBALIZED UNDERSTANDING, CALL LIGHT WITHIN REACH. WILL CONTINUE TO MONITOR.
[2017-01-11] MEDS ORDERED: LEVOFLOXACIN 750 MG/D5W PREMIX 150 ML IV SCH (19:50)
[2017-01-11 20:00] VITALS: BP 116/74
[2017-01-11] MEDS: FUROSEMIDE 40 MG/4 ML VIAL IVP SCH (20:16)
[2017-01-11] MEDS: DOCUSATE SODIUM 100 MG GELCAP PO SCH (20:16)
--- NOTE | 2017-01-11 20:24 | NUR ---
PM MEDS ADMINISTERED, PATIENT TOLERATED WELL, PT RESTING IN BED, NO SIGN OF DISTRESS, CALL LIGHT WITHIN REACH. WILL CONTINUE TO MONITOR.
--- NOTE | 2017-01-11 22:35 | NUR ---
PT SLEEPING IN BED, NO SIGN OF DISTRESS, CALL LIGHT WITHIN REACH. WILL CONTINUE TO MONITOR.
[2017-01-12] VITALS (9 sets, daily range): BP systolic 102–135; BP diastolic 67–86
--- NOTE | 2017-01-12 00:15 | NUR ---
VITAL SIGNS STABLE, NO SOB OR SIGN OF DISTRESS, PT ASKING FOR SNACKS, PT RESTING IN BED, WILL CONTINUE TO MONITOR.
[2017-01-12] MEDS ORDERED: CLINDAMYCIN 600 MG/4 ML VIAL ONE ×2 (00:37→06:03)
[2017-01-12] MEDS: ALBUTEROL SULFATE/IPRATROPIU 3 ML SOL IH SCH ×4 (00:57→19:00)
[2017-01-12] MEDS: CLINDAMYCIN 600 MG in DEXTROSE 5% 50 ML IV SCH ×4 (01:05→17:12)
--- NOTE | 2017-01-12 02:25 | NUR ---
PT SLEEPING, NO SIGN OF DISTRESS, CALL LIGHT WITHIN REACH. WILL CONTINUE TO MONITOR.
[2017-01-12] MEDS: NACL 0.9% 1,000 ML IV SCH ×2 (04:12→21:00)
--- NOTE | 2017-01-12 04:15 | NUR ---
VITAL SIGNS STABLE, NO SIGN OF DISTRESS CALL LIGHT WITHIN REACH. WILL CONTINUE TO MONITOR.
[2017-01-12 05:51] LABS: BASOPHILS # (AUTO) 0.1 K/uL (0.00-0.22); BASOPHILS % (AUTO) 2.5 % (0.0-2.0); EOSINOPHILS # (AUTO) 0.2 K/uL (0-0.4); EOSINOPHILS % (AUTO) 4.9 % (0.0-4.0); HEMATOCRIT 38.5 % (36-52); HEMOGLOBIN 12.3 g/dL (12.0-18.0); LYMPHOCYTES # (AUTO) 1.1 K/uL (2.0-11.5); LYMPHOCYTES % (AUTO) 30.9 % (20.5-51.1); MEAN CORPUSCULAR HEMOGLOBIN 27 pg (27-31); MEAN CORPUSCULAR HGB CONC 32 g/dL (33-37); MEAN CORPUSCULAR VOLUME 83 fL (80-94); MONOCYTES # (AUTO) 0.5 K/uL (0.8-1.0); MONOCYTES % (AUTO) 12.6 % (1.7-9.3); NEUTROPHILS # (AUTO) 1.8 K/uL (1.8-7.7); NEUTROPHILS % (AUTO) 49.1 % (42.2-75.2); PLATELET COUNT (AUTO) 312 K/uL (140-450); RED BLOOD CELL COUNT(AUTO) 4.61 MIL/uL (4.20-6.10); RED CELL DISTRIBUTION WIDTH 17.9 % (11.6-13.7); WHITE BLOOD COUNT (AUTO) 3.7 K/uL (4.8-10.8)
[2017-01-12 06:14] LABS: ANION GAP 12.9 (8-16); CALCIUM 8.2 mg/dL (8.5-10.1); CARBON DIOXIDE 25.6 mmol/L (21-32); POTASSIUM 3.5 mmol/L (3.5-5.1)
--- NOTE | 2017-01-12 07:30 | NUR ---
RECEIVED PT IN BED. AWAKE. ALERT, ORIENTEDX4. NO SOB NOTED. DENIES ANY PAIN OR DISCOMFORT AT THIS TIME. POSITIVE BOWEL SOUNDS NOTED ON FOUR QUADRANTS. PT AMBULATORY WITH STANDBY ASSIST. DENIES ANY DISCOMFORT WITH BOWEL OR BLADDER ELIMINATION AT THIS TIME. SAFETY PRECAUTION IN PLACE. CALL LIGHT WITHIN REACH.
--- NOTE | 2017-01-12 07:30 | NUR ---
ENDORSED PATIENT TO DAY RN AT BEDSIDE, PATIENT IN STABLE CONDITION
[2017-01-12] MEDS: LACTOBACILLUS RHAMNOSUS GG 1 EACH CAP PO SCH ×2 (08:20→17:09)
[2017-01-12] MEDS: CARVEDILOL 3.125 MG TAB PO SCH ×2 (08:21→17:50)
--- NOTE | 2017-01-12 08:52 | NUR ---
PATIENT HAS BEEN SCREENED AND CATEGORIZED MODERATE NUTRITION RISK. PATIENT WILL BE SEEN WITHIN 3-5 DAYS OF ADMISSION. 01/14/17-01/16/[address]
--- NOTE | 2017-01-12 08:55 | NUR ---
DR. BOGGS MADE AWARE OF LATEST BP 104/67 HR 101, AND PT HAS LASIX DUE. ORDERED TO HOLD LASIX.
[2017-01-12] MEDS: FUROSEMIDE 40 MG/4 ML VIAL IVP SCH ×2 (08:58→17:11)
[2017-01-12] MEDS: LOSARTAN 25 MG TAB PO SCH (08:58)
[2017-01-12] MEDS: DOCUSATE SODIUM 100 MG GELCAP PO SCH ×2 (09:02→20:52)
[2017-01-12] MEDS: ATORVASTATIN 20 MG TAB PO SCH (09:03)
[2017-01-12] MEDS: ASPIRIN 81 MG TAB.CHEW PO SCH (09:03)
[2017-01-12 09:15] LABS: T4 (THYROXINE) 7.4 ug/dL (4.5-12.0)
--- NOTE | 2017-01-12 10:00 | NUR ---
PT REQUESTED FOR SOME SNACKS. CRACKERS AND JELLO PROVIDED. TOLERATED WELL. NO SOB. DENIES ANY PAIN OR DISCOMFORT AT THIS TIME. PT COOPERATIVE. ABLE TO MAKE NEEDS KNOWN.
--- NOTE | 2017-01-12 10:21 | NUR ---
FAXED INITIAL REVIEW TO [facility] [phone] PHONE [phone]
--- NOTE | 2017-01-12 13:06 | NUR ---
PT REFUSED BREATHING TX NO SIGNS OF DISTRESS NOTED AT THIS TIME
--- NOTE | 2017-01-12 15:29 | NUR ---
SS NOTE: I SPOKE WITH PT BEDSIDE AND PROVIDED HIM WITH HIS MEDI-SHELDON INFORMATION WELL HIS ASSIGNED [facility] IN [place].
--- NOTE | 2017-01-12 15:52 | NUR ---
P.T. NOTES P.T. EVAL DONE; D/C FROM P.T. AFTER EVAL, NURSING TO AMBULATE PATIENT AD [facility].
--- NOTE | 2017-01-12 17:10 | NUR ---
RECEIVED A CALL FROM [facility]OLOG[facility] [place] REGARDING PT REFUSE TO DO THORACENTESIS SINCE THIS MORNING. DR. MONCADA MADE AWARE. AND TO SEE PT.
--- NOTE | 2017-01-12 19:21 | NUR ---
PT KEPT CLEAN, DRY AND COMFORTABLE, NEEDS ATTENDED. ENDORSED TO NEXT SHIFT ON STABLE CONDITION FOR CONTINUITY OF CARE.
--- NOTE | 2017-01-12 19:30 | NUR ---
RECEIVED REPORT FROM DAY RN AT BEDSIDE, PATIENT IS AAOX4 RESTING IN BED, ON ROOM AIR, NO SIGN OF DISTRESS, PATIENT DENIES PAIN AT THIS TIME, IV TO LEFT HAND PATENT AND INTACT, SKIN INTACT, DISCUSSED PLAN OF CARE WITH PATIENT, PATIENT VERBALIZED UNDERSTANDING, CALL LIGHT WITHIN REACH. WILL CONTINUE TO MONITOR.
--- NOTE | 2017-01-12 19:44 | NUR ---
1939 PT REFUSED HHNTX. SAID HE WOULD CALL IF HE NEEDED ONE. PT DID NOT WANT ME TO CHECK HIS SATURATION. PT DID NOT APPEAR SOB AND COULD VEBALLY COMMUNICATE.
[2017-01-12] MEDS: LEVOFLOXACIN 750 MG/D5W PREMIX 150 ML IV SCH (22:02)
--- NOTE | 2017-01-12 22:05 | NUR ---
PM MEDS ADMINISTERED PATIENT TOLERATED WELL, PT RESTING IN BED, NO SIGN OF DISTRESS, CALL LIGHT WITHIN REACH. WILL CONTINUE TO MONITOR.
[2017-01-13] VITALS: BP 94/64
--- NOTE | 2017-01-13 00:30 | NUR ---
VITAL SIGNS STABLE, PT C/O "15" ABDOMINAL PAIN, BP TOO LOW TO ADMINISTER MORPHINE, NOTIFIED MD FIGUEROA. MD WENT TO ASSESS PT AND STATED SHE WILL PUT IN ORDERS FOR TORADOL, WILL F/U WITH ORDERS. CALL LIGHT WITHIN REACH. WILL CONTINUE TO MONITOR.
[2017-01-13] MEDS: CLINDAMYCIN 600 MG in DEXTROSE 5% 50 ML IV SCH ×4 (00:41→17:24)
[2017-01-13] MEDS: ALBUTEROL SULFATE/IPRATROPIU 3 ML SOL IH SCH ×4 (01:00→19:10)
[2017-01-13] MEDS ORDERED: KETOROLAC 15 MG/ML VIAL IVP SCH (01:00)
--- NOTE | 2017-01-13 02:15 | NUR ---
PT SLEEPING. NO SIGN OF DISTRESS, CALL LIGHT WITHIN REACH. WILL CONTINUE TO MONITOR.
[2017-01-13 04:00] VITALS: BP 101/70
--- NOTE | 2017-01-13 04:10 | NUR ---
VITAL SIGNS STABLE, NO SIGN OF DISTRESS, PT SITING UP IN BED, CALL LIGHT WITHIN REACH. WILL CONTINUE TO MONITOR
[2017-01-13 05:42] LABS: BASOPHILS # (AUTO) 0.1 K/uL (0.00-0.22); BASOPHILS % (AUTO) 3.1 % (0.0-2.0); EOSINOPHILS # (AUTO) 0.1 K/uL (0-0.4); EOSINOPHILS % (AUTO) 2.9 % (0.0-4.0); HEMATOCRIT 38.5 % (36-52); HEMOGLOBIN 12.2 g/dL (12.0-18.0); LYMPHOCYTES # (AUTO) 1.2 K/uL (2.0-11.5); LYMPHOCYTES % (AUTO) 32.8 % (20.5-51.1); MEAN CORPUSCULAR HEMOGLOBIN 26 pg (27-31); MEAN CORPUSCULAR HGB CONC 32 g/dL (33-37); MEAN CORPUSCULAR VOLUME 83 fL (80-94); MONOCYTES # (AUTO) 0.6 K/uL (0.8-1.0); MONOCYTES % (AUTO) 15.7 % (1.7-9.3); NEUTROPHILS # (AUTO) 1.8 K/uL (1.8-7.7); NEUTROPHILS % (AUTO) 45.5 % (42.2-75.2); PLATELET COUNT (AUTO) 303 K/uL (140-450); RED BLOOD CELL COUNT(AUTO) 4.61 MIL/uL (4.20-6.10); RED CELL DISTRIBUTION WIDTH 18.4 % (11.6-13.7); WHITE BLOOD COUNT (AUTO) 3.8 K/uL (4.8-10.8)
[2017-01-13 05:55] LABS: ANION GAP 14.1 (8-16); CALCIUM 8.2 mg/dL (8.5-10.1); CARBON DIOXIDE 24.5 mmol/L (21-32); CREATININE 1.1 mg/dL (0.7-1.3); POTASSIUM 3.6 mmol/L (3.5-5.1)
--- NOTE | 2017-01-13 07:30 | NUR ---
ENDORSED PATIENT TO DAY RN AT BEDSIDE, PATIENT IN STABLE CONDITION
--- NOTE | 2017-01-13 07:31 | NUR ---
RECEIVED REPORT FROM THE ELECTRICAL ENGINEERING INTERN NURSE AT BEDSIDE FOR CONTINUITY OF CARE. PT IS AWAKE AND ALERT AND SITTING UP FOR BREAKFAST. INTRODUCED MYSELF AND UPDATED THE BOARD. PT IS AMBULATORY, SKIN IS INTACT. IV ON L HAND 24G NS AT 60ML/HR. POSITIONAL. NOTED THE BLE PITTING EDEMA. ORDERS FOR PT TODAY. LABS ALL WITHIN NORMAL RANGE. V/S WITHIN WITHIN NORMAL RANGE. PT'S BP HAS BEEN CONSISTENTLY RUNNING ON THE LOWER END. O2 SAT IS 100%. REORIENTED HIM TO THE ROOM, CALL LIGHT, AND PLAN FOR TODAY. WILL CONTINUE TO MONITOR PT.
[2017-01-13 08:00] VITALS: BP 94/70
[2017-01-13 08:11] LABS: HEMOGLOBIN A1C 6.2 % (4.8-5.6)
[2017-01-13] MEDS: ASPIRIN 81 MG TAB.CHEW PO SCH (08:19)
[2017-01-13] MEDS: CARVEDILOL 3.125 MG TAB PO SCH ×2 (08:20→17:14)
[2017-01-13] MEDS: ATORVASTATIN 20 MG TAB PO SCH (08:20)
[2017-01-13] MEDS: FUROSEMIDE 40 MG/4 ML VIAL IVP SCH ×2 (08:20→17:24)
[2017-01-13] MEDS: LACTOBACILLUS RHAMNOSUS GG 1 EACH CAP PO SCH ×2 (08:20→17:13)
[2017-01-13] MEDS: DOCUSATE SODIUM 100 MG GELCAP PO SCH ×2 (08:20→20:29)
--- NOTE | 2017-01-13 08:20 | NUR ---
ADMINISTERED MORNING MEDS. PT TOLERATED WELL. HELD ONE OF THE BP MEDS D/T DECREASED BP. WILL CONTINUE TO MONITOR PT.
[2017-01-13] MEDS: LOSARTAN 25 MG TAB PO SCH (08:21)
--- NOTE | 2017-01-13 08:25 | NUR ---
CM NOTE CONCURRENT REVIEW FAXED TO [facility] [phone] OPTION 0, [facility] EXT [id number]
--- NOTE | 2017-01-13 10:45 | NUR ---
PT SLEEPING SOUNDLY. BIT SOB. OTHERWISE NO SIGNS OF DISTRESS. WILL CONTINUE TO MONITOR PT.
[2017-01-13 12:00] VITALS: BP 98/73
[2017-01-13] MEDS: NACL 0.9% 1,000 ML IV SCH (12:25)
--- NOTE | 2017-01-13 13:17 | NUR ---
PT REFUSES HHN AND VITALS
--- NOTE | 2017-01-13 15:47 | NUR ---
PT SITTING UP IN HIS BED. STUDENT RN'S AT BEDSIDE. BIT SOB. BUT REFUSED BREATHING TX. WILL CONTINUE TO MONITOR PT.
[2017-01-13 16:00] VITALS: BP_SYST 102; BP_SYST 121; BP_DIAS 86; BP_DIAS 87
--- NOTE | 2017-01-13 17:31 | NUR ---
PT SITTING UP IN BED. ADMINISTERED ABX. PT TOLERATED WELL. PT BREATHING IS BETTER. LESS SOB. WILL CONTINUE TO MONITOR PT.
--- NOTE | 2017-01-13 18:55 | NUR ---
PT RESTING COMFORTABLY. NO COMPLAINTS. ALL NEEDS MET AT THIS TIME. WILL CONTINUE TO MONITOR PT.
--- NOTE | 2017-01-13 19:10 | NUR ---
PT REFUSED HHN TX AND REFUSED TO WEAR OXYGEN.
--- NOTE | 2017-01-13 19:25 | NUR ---
ENDORSED PT TO THE PHYSICAL PLANT EMPLOYEE NURSE AT BEDSIDE FOR CONTINUITY OF CARE. PT IS ANXIOUS BUT STABLE. WILL LET PHYSICAL PLANT EMPLOYEE NURSE TO GIVE ATIVAN SOON SO HE CAN SLEEP.
--- NOTE | 2017-01-13 19:26 | NUR ---
RECEIVED REPORT FROM DAY RN FOR CONTINUITY OF CARE. PATIENT IS ALERT & ORIENTED X4, DISCUSSED PLAN OF CARE WITH PATIENT, VERBALIZED UNDERSTANDING. SHIFT ASSESSMENT DONE, VITAL SIGNS STABLE AT THIS TIME. PATIENT REFUSING BREATHING TREATMENT, EDUCATED PT BUT STILL REFUSED. PATIENT DENIES PAIN. IV TO LT HAND PATENT AND INFUSING FLUIDS WELL. PATIENT HAS BLE EDEMA NOTED. SAFETY/ FALL PRECAUTIONS ENFORCED, CALL LIGHT WITHIN REACH. WILL CONTINUE TO MONITOR FREQUENTLY.
[2017-01-13 20:00] VITALS: BP 112/78
[2017-01-13] MEDS: FUROSEMIDE 100 MG/10 ML VIAL IVP SCH (20:29)
--- NOTE | 2017-01-13 20:29 | NUR ---
DUE MEDICATIONS ADMINISTERED, TOLERATED WELL. PATIENT RESTING IN BED WATCHING TV, NO DISTRESS NOTED. CALL LIGHT WITHIN REACH.
[2017-01-13] MEDS: LEVOFLOXACIN 750 MG/D5W PREMIX 150 ML IV SCH (22:17)
--- NOTE | 2017-01-13 22:17 | NUR ---
DUE ANTIBIOTICS ADMINISTERED, TOLERATED WELL. PATIENT RESTING IN BED, PROVIDED A SNACK PER REQUEST. EMPTIED URINAL 600 ML URINE NOTED. CALL LIGHT WITHIN REACH.
[2017-01-14] VITALS: BP 109/79
--- NOTE | 2017-01-14 00:30 | NUR ---
VITAL SIGNS TAKEN, PATIENT HAVING INCREASED RESPIRATORY RATE ASKED PT IF HE WOULD LIKE BREATHING TX AND HE SAID "YES". PAGED RESPIRATORY. ALL OTHER VITALS SIGNS STABLE AND DUE ANTIBIOTICS ADMINISTERED. CALL LIGHT WITHIN REACH.
[2017-01-14] MEDS: ALBUTEROL SULFATE/IPRATROPIU 3 ML SOL IH SCH ×3 (00:31→14:04)
--- NOTE | 2017-01-14 00:42 | NUR ---
I EXPLAINED PT THAT HE NEEDS NASAL CANNULA 2L DUE TO SAT LOW, AND HE REFUSED TO USED.I LEFT THE NC ON THE BED TOLD PT IF HE WANTS IT FOR LATER ON.
[2017-01-14] MEDS: CLINDAMYCIN 600 MG in DEXTROSE 5% 50 ML IV SCH ×3 (00:49→13:14)
--- NOTE | 2017-01-14 02:10 | NUR ---
PATIENT SLEEPING AT THIS TIME, NO S/S OF RESPIRATORY DISTRESS OR DISCOMFORT NOTED. SAFETY MEASURES ENFORCED, CALL LIGHT WITHIN REACH.
[2017-01-14 04:00] VITALS: BP 100/71
[2017-01-14] MEDS: MORPHINE SULFATE 2 MG/ML SYR IVP PRN ×3 (04:45→13:13)
--- NOTE | 2017-01-14 04:45 | NUR ---
PATIENT C/O ABDOMINAL PAIN, LOW BP NOTED, SPOKE TO MD REGARDING PLAN OF CARE. PER MD DID NOT WANT TO ORDER TORADOL. RECHECKED BP, NOW UP TO 120'S SYSTOLIC, OK TO GIVE MORPHINE PER MD. WILL CONTINUE TO MONITOR FREQUENTLY.
[2017-01-14] MEDS: FUROSEMIDE 100 MG/10 ML VIAL IVP SCH ×3 (06:05→13:13)
[2017-01-14] MEDS: NACL 0.9% 1,000 ML IV SCH (06:06)
[2017-01-14 06:31] LABS: HEMATOCRIT 38.2 % (36-52); HEMOGLOBIN 11.9 g/dL (12.0-18.0); MEAN CORPUSCULAR HEMOGLOBIN 26 pg (27-31); MEAN CORPUSCULAR HGB CONC 31 g/dL (33-37); MEAN CORPUSCULAR VOLUME 83 fL (80-94); PLATELET COUNT (AUTO) 311 K/uL (140-450); RED BLOOD CELL COUNT(AUTO) 4.59 MIL/uL (4.20-6.10); RED CELL DISTRIBUTION WIDTH 18.3 % (11.6-13.7); WHITE BLOOD COUNT (AUTO) 3.4 K/uL (4.8-10.8)
--- NOTE | 2017-01-14 06:50 | NUR ---
IV TO LT HAND DISLODGED WITH CANNULA INTACT, INSERTED NEW IV LINE TO LT FA, LASIX ADMINISTERED. WILL CONTINUE TO MONITOR.
[2017-01-14 06:58] LABS: ANION GAP 12.9 (8-16); CARBON DIOXIDE 27.2 mmol/L (21-32); POTASSIUM 3.1 mmol/L (3.5-5.1)
--- NOTE | 2017-01-14 07:24 | NUR ---
ENDORSED PATIENT TO DAY RN AT BEDSIDE FOR CONTINUITY OF CARE.
--- NOTE | 2017-01-14 07:25 | NUR ---
RECEIVED REPORT FROM THE REPAIRER AND CHECKER NURSE AT BEDSIDE FOR CONTINUITY OF CARE. PT IS ALERT AND ORIENTED. INTRODUCED MYSELF AND UPDATED THE BOARD. V/S WITHIN NORMAL RANGE. PT IS BREATHING BETTER. HAD BREATHING TX THIS MORNING. IV NOW IN L FA 22G NS AT 60ML/HR. BLE PITTING EDEMA +2. EMPTIED URINAL 300ML CLEAR, YELLOW URINE. C/O OF SOME ABD PAIN. WILL MEDICATE WITH MORNING MEDS.
[2017-01-14 07:39] LABS: BAND % (MANUAL) 3 % (0-8); EOSINOPHILS % (MANUAL) 2 % (0-4); LYMPHOCYTES % (MANUAL) 29 % (20-46); MONOCYTES % (MANUAL) 8 % (5-12); NEUTROPHILS % (MANUAL) 58 (43-65); PLATELET ESTIMATE ADEQUATE
--- NOTE | 2017-01-14 07:40 | NUR ---
AWAKE AND ALERT NO PULMONARY DISTRESS NOTED PATIENT WITH BREAKFAST TRAY AT THIS TIME DIRECTOR REGULATORY AFFAIRS TO ATTEMPT HHN HTERAPY AT A LATER TIME
[2017-01-14 08:00] VITALS: BP 112/81
[2017-01-14] MEDS: ASPIRIN 81 MG TAB.CHEW PO SCH (08:33)
[2017-01-14] MEDS: LOSARTAN 25 MG TAB PO SCH (08:34)
[2017-01-14] MEDS: CARVEDILOL 3.125 MG TAB PO SCH (08:34)
[2017-01-14] MEDS: DOCUSATE SODIUM 100 MG GELCAP PO SCH (08:34)
[2017-01-14] MEDS: ATORVASTATIN 20 MG TAB PO SCH (08:34)
[2017-01-14] MEDS: LACTOBACILLUS RHAMNOSUS GG 1 EACH CAP PO SCH (08:35)
--- NOTE | 2017-01-14 08:40 | NUR ---
ADMINISTERED MORNING MEDS, INCLUDING ALL BP MEDS AND PAIN MED. PT TOLERATED WELL. WILL CONTINUE TO MONITOR PT.
[2017-01-14] MEDS ORDERED: POTASSIUM CHLORIDE 10 MEQ TABER PO SCH (10:10)
--- NOTE | 2017-01-14 10:19 | NUR ---
PT SITTING UP AND FALLING ASLEEP. NO SIGNS OF DISTRESS. WILL CONTINUE TO MONITOR PT.
[2017-01-14 12:00] VITALS: BP 105/74
--- NOTE | 2017-01-14 12:30 | NUR ---
PT EATING LUNCH. ATE 100% . NO COMPLAINTS AT THIS TIME. WILL CONTINUE TO MONITOR PT.
--- NOTE | 2017-01-14 15:15 | NUR ---
DC INSTRUCTION GIVEN. PT WANTED TO SPEAK TO REGARDING ABD PAIN. DR BOGGS CAME AND EXPLAINED TO THE PT THAT HE HAS GALLSTONES. BUT NOT A CANDIDATE FOR SURGERY D/T HIS HEART CONDITION. PT VERBALIZED UNDERSTANDING. WENT OVER D/C INSTRUCTIONS. ANSWERED ALL QUESTIONS. PT VERBALIZED UNDERSTANDING. SIGNED APPROPRIATE PAPERS. REMOVED IV, CANNULA INTACT. NO BLEEDING NOTED. REMOVED ARM BANDS AND TELE MONITOR. REQUESTED CLOTHES FROM SECURITY. SURVEY RESEARCH ASSOCIATE ASSISTED PT GETTING DRESSED. GATHERED ALL PERSONAL BELONGINGS. CALLED FOR [employer]. VOUCHER FROM RESIDENT CARE AIDE. WAITING FOR TAXI.
--- NOTE | 2017-01-14 15:35 | NUR ---
WHEELED PT OUT TO THE LOBBY AND INTO THE TAXI. [facility] [address] AD[facility]ESS PROVIDED BY PATIENT. PT IS IN STABLE CONDITION. VOUCHER SIGNED AND COPY IN CHART.
--- NOTE | 2017-01-19 14:58 | NUR ---
LATE ENTRY FOR 01/16/17 1415 SPOKE WITH ANNE PALM AT [facility] REGARDING LETTER OF DENIAL AND SHE INDICATED THAT PHYSICIAN COULD DO A PEER TO PEER OR FOLLOW APPEAL PROCESS WHICH CAN TAKE UP TO [address]. [address] OATES AND HE STATED THAT HE WILL DO PEER TO PEER AND PROVIDED HIM WITH PHONE NUMBER FOR PEER TO PEER FROM [facility] [phone] EXT [phone]. SHORT TIME LATER WAS INFORMED BY DR OATES THAT HE CALLED THE PHONE NUMBER AND WAS INFORMED THAT CHART STILL IN REVIEW AND THAT IT WAS SURPRISING THAT A DENIAL LETTER HAD ALREADY BEEN SENT. 01/19/17 142 LEFT A VM MESSAGE FOR ANNE PALM AT [facility] [phone] EXT [phone] FOR CALL BACK TO DISCUSS THE ISSUE OF HOW TO PROCEED WITH THE DENIAL.
== END 2017-01-14 15:35 | disposition home or self-care (01) | DRG 194 ==
LOC: MED 07:53 → MTU 11:32
PROVIDERS: ADMIT Family Medicine; ATTEND Family Medicine
DX: I11.0 Hypertensive heart disease with heart failure (principal); N17.0 Acute kidney failure with tubular necrosis; E43 Unspecified severe protein-calorie malnutrition; I50.43 Acute on chronic combined systolic (congestive) and diastolic (congestive) heart failure; J90 Pleural effusion, not elsewhere classified; I42.0 Dilated cardiomyopathy; F20.1 Disorganized schizophrenia; E03.9 Hypothyroidism, unspecified; E83.51 Hypocalcemia; E11.9 Type 2 diabetes mellitus without complications; F17.210 Nicotine dependence, cigarettes, uncomplicated; I25.10 Atherosclerotic heart disease of native coronary artery without angina pectoris; K80.20 Calculus of gallbladder without cholecystitis without obstruction; Z53.29 Procedure and treatment not carried out because of patient's decision for other reasons; Z59.0 Homelessness; Z79.82 Long term (current) use of aspirin; Z79.899 Other long term (current) drug therapy; Z91.19 Patient's noncompliance with other medical treatment and regimen; Z72.89 Other problems related to lifestyle; Z90.49 Acquired absence of other specified parts of digestive tract; Z68.20 Body mass index [BMI] 20.0-20.9, adult
CPT/HCPCS: 36415; 71010; 76604; 76705; 80048; 80053; 80305; 81001; 82140; 82150; 82553; 83036; 83605; 83690; 83735; 83880; 84100; 84436; 84439; 84443; 84479; 84484; 85025; 85610; 85730; 87081; 93005; 94640; 96374; 96375; 99285; C1758; J1885; J1940; J1956; J2270; J2405; J3490; J7030; J7060; J7620; Q0092